=== PATIENT | female | born 1955 | race African-American/Black ===

== ENCOUNTER 2020-11-01 16:14 | Inpatient (IN) | payer MEDICAID ==
[~2020-11-01] VITALS: Ht 170.2 cm; Wt 91.9 kg
[~2020-11-01 16:14] MED LIST: CIPRPOW8; LISIPOW
[2020-11-01] MEDS ORDERED: cloNIDine HCL 0.1 MG TAB PO ONE (16:30)
[2020-11-01 16:53] LABS: Basophils # (auto) 0.1 10 ^3/uL (0-0.2); Basophils % (auto) 0.9 % (0.0-2.0); Eosinophils # (auto) 0.2 10 ^3/uL (0-0.8); Eosinophils % (auto) 1.7 % (0.0-7.0); Hematocrit 44.3 % (36.0-46.0); Hemoglobin 14.8 g/dL (12.2-16.2); Lymphocytes # (auto) 2.4 10 ^3/uL (0.4-5.4); Lymphocytes % (auto) 20.9 % (10.0-50.0); Mean Corpuscular Hemoglobin 29.7 pg (28.0-32.0); Mean Corpuscular Hgb Conc. 33.5 g/dL (32.0-36.0); Mean Corpuscular Volume 88.7 fL (80.0-100.0); Monocytes # (auto) 0.8 10 ^3/uL (0-1.3); Neutrophils # (auto) 7.9 10 ^3/uL (1.6-8.6); Neutrophils % (auto) 69.5 % (37.0-80.0); Nucleated Red Blood Cells % 0.1 %; Platelet Count (auto) 176 10^3/uL (140-450); Red Blood Cells 4.99 10^6/uL (4.0-5.20); Red Cell Distribution Width 15.1 % (11.8-14.3); White Blood Cell 11.3 10^3/uL (4.4-10.8)
[2020-11-01 17:08] LABS: Albumin 3.1 g/dL (3.4-5.0); Anion Gap 4 (5-15); Blood Urea Nitrogen 11 mg/dL (7-18); Calcium 9.1 mg/dL (8.5-10.1); Carbon Dioxide 27 mmol/L (21-32); Chloride 111 mmol/L (98-107); Glucose 131 mg/dL (74-106); Magnesium 2.2 mg/dL (1.6-2.6); Potassium 3.7 mmol/L (3.5-5.1); Sodium 142 mmol/L (136-145)
[2020-11-01 17:26] LABS: INR 0.94 (0.9-1.15); Partial Thromboplastin Time 27.4 sec (23.0-31.2)
[2020-11-01 17:33] LABS: Alanine Aminotransferase 20 U/L (13-56); Alkaline Phosphatase 121 U/L (45-117); Aspartate Aminotransferase 16 U/L (15-37); BUN/Creatinine Ratio 10.6; Bilirubin, Total 0.4 mg/dL (0.2-1.0); GFR African American 69 mL/min; GFR Non-African American 57 mL/min; Total Protein 7.1 g/dL (6.4-8.2)
[2020-11-01] MEDS ORDERED: MORPHINE SULF INJ 2 MG/ML SYRINGE 1ML IV PRN ×2 (21:00)
[2020-11-01] MEDS ORDERED: HYDROcodone-ACET 5/325MG TAB PO PRN (21:00)
[2020-11-01] MEDS ORDERED: hydrALAZINE HCL 20 MG/ML VL IV PRN (21:00)
[2020-11-01] MEDS ORDERED: NITROGLYCERIN 0.4 MG SL TAB SL PRN (21:00)
[2020-11-01] MEDS ORDERED: SODIUM CHLORIDE 0.9% 1,000 ML IV SCH (21:00)
[2020-11-01] MEDS ORDERED: DOCUSATE SOD 100 MG CAP PO PRN (21:00)
[2020-11-01] MEDS ORDERED: ONDANSETRON HCL 4 MG/2 ML VIAL IV PRN (21:00)
[2020-11-01] MEDS ORDERED: ACETAMINOPHEN 325 MG TAB PO PRN (21:00)
[2020-11-01 21:55] VITALS: BP 138/86
[2020-11-01 22:00] VITALS: BP 138/86
[2020-11-01] MEDS ORDERED: HYDR12.56 PO (22:53)
[2020-11-01] MEDS ORDERED: ENAL2.5T7 PO (22:53)
[2020-11-01] MEDS ORDERED: GABA300C10 PO (22:53)
[2020-11-02] MEDS: ASCORBIC ACID 500 MG TAB PO SCH ×3 (01:00→22:24)
[2020-11-02] MEDS: FAMOTIDINE 20 MG TAB PO SCH ×3 (01:00→22:24)
[2020-11-02] MEDS: ATORVASTATIN 20 MG TAB PO SCH ×2 (01:00→22:24)
[2020-11-02 05:16] VITALS: BP 146/99
[2020-11-02 06:00] VITALS: BP 143/72
[2020-11-02 06:26] LABS: Basophils # (auto) 0.1 10 ^3/uL (0-0.2); Basophils % (auto) 0.6 % (0.0-2.0); Eosinophils # (auto) 0.2 10 ^3/uL (0-0.8); Eosinophils % (auto) 2.2 % (0.0-7.0); Hematocrit 43.3 % (36.0-46.0); Hemoglobin 14.5 g/dL (12.2-16.2); Lymphocytes # (auto) 2.4 10 ^3/uL (0.4-5.4); Lymphocytes % (auto) 25.7 % (10.0-50.0); Mean Corpuscular Hemoglobin 29.9 pg (28.0-32.0); Mean Corpuscular Hgb Conc. 33.6 g/dL (32.0-36.0); Monocytes # (auto) 0.7 10 ^3/uL (0-1.3); Monocytes % (auto) 7.9 % (0.0-12.0); Neutrophils # (auto) 5.9 10 ^3/uL (1.6-8.6); Neutrophils % (auto) 63.6 % (37.0-80.0); Nucleated Red Blood Cells % 0.1 %; Platelet Count (auto) 180 10^3/uL (140-450); Red Blood Cells 4.87 10^6/uL (4.0-5.20); White Blood Cell 9.2 10^3/uL (4.4-10.8)
[2020-11-02 06:44] LABS: Albumin 3.1 g/dL (3.4-5.0); Calcium 9.4 mg/dL (8.5-10.1); Potassium 4.2 mmol/L (3.5-5.1)
[2020-11-02 06:48] LABS: BUN/Creatinine Ratio 14.7; Bilirubin, Total 0.3 mg/dL (0.2-1.0); Total Protein 6.8 g/dL (6.4-8.2)
[2020-11-02 08:00] VITALS: BP 143/72
[2020-11-02] MEDS: ASPirin 81 mg TAB PO SCH (10:32)
[2020-11-02] MEDS: ZINC SULFATE 220mg CAP or TAB PO SCH (10:33)
[2020-11-02] MEDS: ENOXAPARIN SOD 40 MG/0.4 ML SYRINGE SC SCH (10:33)
[2020-11-02 13:00] VITALS: BP 143/83
[2020-11-02 16:49] VITALS: BP 151/77
[2020-11-03] VITALS (7 sets, daily range): BP systolic 140–167; BP diastolic 67–93
[2020-11-03] MEDS: ENOXAPARIN SOD 40 MG/0.4 ML SYRINGE SC SCH (09:58)
[2020-11-03] MEDS: ASCORBIC ACID 500 MG TAB PO SCH (09:59)
[2020-11-03] MEDS: ASPirin 81 mg TAB PO SCH (09:59)
[2020-11-03] MEDS: FAMOTIDINE 20 MG TAB PO SCH (09:59)
[2020-11-03] MEDS: ZINC SULFATE 220mg CAP or TAB PO SCH (09:59)
[2020-11-03] MEDS ORDERED: HCTZ 25 MG TAB PO SCH (11:00)
[2020-11-03] MEDS ORDERED: ENALAPRIL MALEATE 2.5 MG TAB PO SCH (11:00)
== END 2020-11-03 18:31 | disposition home or self-care (01) | DRG 199 ==
LOC: EDSEX 16:14 → ER 16:14 → EDBD 16:14 → TELE 16:15 → TELE-CENTR 21:51
PROVIDERS: ADMIT Nurse Practitioner Family; ATTEND Internal Medicine
DX: I16.0 Hypertensive urgency (principal); R73.9 Hyperglycemia, unspecified; F41.9 Anxiety disorder, unspecified; G62.9 Polyneuropathy, unspecified; E66.01 Morbid (severe) obesity due to excess calories; F17.210 Nicotine dependence, cigarettes, uncomplicated; F32.9 Major depressive disorder, single episode, unspecified; Z20.822 Contact with and (suspected) exposure to COVID-19; I10 Essential (primary) hypertension; Z98.51 Tubal ligation status; Z68.31 Body mass index [BMI] 31.0-31.9, adult; Z79.899 Other long term (current) drug therapy
CPT/HCPCS: 36415; 71045; 80053; 83036; 83735; 83880; 84443; 84484; 85025; 85379; 85610; 85730; 87426; 93005; 93306; 96360; 96372; G0378